=== PATIENT | male | born 1940 | race Caucasian/White ===

== ENCOUNTER → 2019-11-27 | Outpatient (CLI) | payer MEDICARE ==
[~2019-11-27] MED LIST: ASPI81CH PO; ATOR20 PO; CRANBERRY500 MG PO; FISH OIL 1,0001 EAC1 PO; Fish Oil 10001000 MG PO; Omeprazole20 M1 PO; Pyridium200 MG PO; Sulfamethoxazo1 EAC4 PO; VITAMIN B-125000 MC1 PO; VITAMIN B-125000 MCG SL; WARF5 PO; XARELTO15 MG PO
== END | disposition home or self-care (01) ==
LOC: LAB SHORT 17:07 → LAB EV 17:07
DX: R82.90 Unspecified abnormal findings in urine (principal)
CPT/HCPCS: 87077; 87086; 87147; 87186

== ENCOUNTER 2020-01-03 10:45 | Emergency (ER) | payer MEDICARE ==
[~2020-01-03] VITALS: Ht 193 cm; Wt 93.0 kg
[2020-01-03] MEDS ORDERED: Ultram50 MG PO (13:12)
[2020-01-03] MEDS ORDERED: Robaxin-750750 MG PO (13:12)
== END 2020-01-03 13:36 | disposition home or self-care (01) ==
LOC: ER 10:45
DX: S39.012A Strain of muscle, fascia and tendon of lower back, initial encounter (principal); M62.830 Muscle spasm of back; Z79.899 Other long term (current) drug therapy; X50.9XXA Other and unspecified overexertion or strenuous movements or postures, initial encounter
CPT/HCPCS: 99283; J7120

== ENCOUNTER → 2020-01-13 | Outpatient (CLI) | payer MEDICARE ==
[~2020-01-13] MED LIST changes: +Robaxin-750750 MG PO; +Ultram50 MG PO
== END | disposition home or self-care (01) ==
LOC: LAB EV 15:45 → LAB SHORT 15:45
DX: N39.0 Urinary tract infection, site not specified (principal)
CPT/HCPCS: 87077; 87086; 87186

== ENCOUNTER → 2020-08-24 | Outpatient (CLI) | payer MEDICARE | END | disposition home or self-care (01) | LOC: LAB EV 10:00 → LAB SHORT 10:00 | DX: S81.801D Unspecified open wound, right lower leg, subsequent encounter (principal) | CPT/HCPCS: 87070; 87205 ==

== ENCOUNTER 2020-09-02 00:17 | Day surgery (SDC) | payer MEDICARE | END 2020-09-02 23:13 | disposition home or self-care (01) | LOC: WOUND 00:17 | DX: L97.811 Non-pressure chronic ulcer of other part of right lower leg limited to breakdown of skin (principal); I73.9 Peripheral vascular disease, unspecified; I87.2 Venous insufficiency (chronic) (peripheral); Z87.891 Personal history of nicotine dependence; Z79.899 Other long term (current) drug therapy | CPT/HCPCS: G0463 ==

== ENCOUNTER 2020-09-09 08:37 | Day surgery (SDC) | payer MEDICARE | END 2020-09-09 23:33 | disposition home or self-care (01) | LOC: WOUND 08:37 | DX: L97.811 Non-pressure chronic ulcer of other part of right lower leg limited to breakdown of skin (principal); I73.9 Peripheral vascular disease, unspecified; I87.2 Venous insufficiency (chronic) (peripheral); Z79.899 Other long term (current) drug therapy | CPT/HCPCS: G0463 ==

== ENCOUNTER 2020-09-16 00:18 | Day surgery (SDC) | payer MEDICARE | END 2020-09-16 23:08 | disposition home or self-care (01) | LOC: WOUND 00:18 | DX: L97.811 Non-pressure chronic ulcer of other part of right lower leg limited to breakdown of skin (principal); I87.2 Venous insufficiency (chronic) (peripheral); D64.9 Anemia, unspecified; Z86.718 Personal history of other venous thrombosis and embolism; Z85.038 Personal history of other malignant neoplasm of large intestine; Z85.51 Personal history of malignant neoplasm of bladder; Z92.21 Personal history of antineoplastic chemotherapy; Z92.3 Personal history of irradiation; Z79.01 Long term (current) use of anticoagulants; Z79.899 Other long term (current) drug therapy | CPT/HCPCS: G0463 ==

== ENCOUNTER 2020-09-23 00:18 | Day surgery (SDC) | payer MEDICARE | END 2020-09-23 22:50 | disposition home or self-care (01) | LOC: WOUND 00:18 | DX: L97.811 Non-pressure chronic ulcer of other part of right lower leg limited to breakdown of skin (principal); I73.9 Peripheral vascular disease, unspecified; I87.2 Venous insufficiency (chronic) (peripheral); Z79.899 Other long term (current) drug therapy | CPT/HCPCS: G0463 ==

== ENCOUNTER 2020-10-08 01:43 | Day surgery (SDC) | payer MEDICARE | END 2020-10-08 22:45 | disposition home or self-care (01) | LOC: WOUND 01:43 | DX: L97.819 Non-pressure chronic ulcer of other part of right lower leg with unspecified severity (principal); D64.9 Anemia, unspecified; Z79.01 Long term (current) use of anticoagulants; Z79.899 Other long term (current) drug therapy; Z86.718 Personal history of other venous thrombosis and embolism; Z92.21 Personal history of antineoplastic chemotherapy; Z92.3 Personal history of irradiation | CPT/HCPCS: G0463 ==

== ENCOUNTER 2022-07-20 17:00 | Inpatient (IN) | payer OTHER ==
[~2022-07-20] VITALS: Ht 193 cm; Wt 101.1 kg
[2022-07-20 18:18] LABS: BASOPHILS ABSOLUTE AUTO 0.06 K/mm3 (0.00-0.23); BASOPHILS PERCENT AUTO 0 % (0-2); EOSINOPHILS ABSOLUTE AUTO 0.15 K/mm3 (0.00-0.68); EOSINOPHILS PERCENT AUTO 1 % (0-6); Hemoglobin 11.9 g/dL (13.5-17.5); IMMATURE GRAN ABSOLUTE AUTO 0.06 K/mm3 (0.00-0.10); IMMATURE GRAN PERCENT AUTO 0 % (0-1); LYMPHOCYTES ABSOLUTE AUTO 1.06 K/mm3 (0.84-5.20); LYMPHOCYTES PERCENT AUTO 7 % (21-46); MONOCYTES ABSOLUTE AUTO 1.36 K/mm3 (0.16-1.47); MONOCYTES PERCENT AUTO 9 % (4-13); Mean Corpuscular HGB 25.6 pg (26.0-34.0); Mean Corpuscular HGB Conc 31.3 g/dL (31.5-36.5); Mean Corpuscular Volume 82 fL (80-100); NEUTROPHILS PERCENT AUTO 83 % (41-73); Platelet Count 180 K/mm3 (150-400); RDW Coefficient Variation 17.9 % (11.7-14.2); RDW Standard Deviation 53.9 fL (35.1-46.3); Red Blood Cell Count 4.64 M/mm3 (4.30-5.90); White Blood Cell Count 15.69 K/mm3 (4.00-11.30)
[2022-07-20 19:05] LABS: Albumin, Blood 3.4 g/dL (3.4-5.0); Albumin/Globulin Ratio 0.9 (0.8-1.8); Bilirubin, Total 0.5 mg/dL (0.1-1.0); Bun/Creatinine Ratio 14.2 (12.0-20.0); Calcium, Blood 9.7 mg/dL (8.5-10.1); Creatinine, Blood 0.92 mg/dL (0.60-1.20); Globulin, Blood 3.7 g/dL (2.2-4.0); Potassium, Blood 4.1 mmol/L (3.5-5.5); Total Protein, Blood 7.1 g/dL (6.4-8.2)
[2022-07-20 19:35] LABS: Influenza A, PCR NEGATIVE (NEGATIVE); Influenza B, PCR NEGATIVE (NEGATIVE); Resp Syncytial Virus, PCR NEGATIVE (NEGATIVE); SARS-Cov-2 (COVID-19) PCR, MMC NEGATIVE (NEGATIVE)
[2022-07-20 21:25] LABS: Source, Urine Foley catheter
[2022-07-20 21:28] LABS: Appearance, Urine Cloudy (Clear); Bilirubin, Urine Neg (Neg); Blood, Urine 5+ (Neg); Color, Urine Brown (P-Yellow); Glucose Qualitative, Urine Neg (Neg); Ketones, Urine Neg (Neg); Leukocyte Esterase, Urine 2+ (Neg); Nitrite, Urine Pos (Neg); Protein, Urine 1+ (Neg); Urobilinogen, Urine NORM (Normal)
[2022-07-20 21:34] LABS: Amorphous Mod (0-Heavy); Bacteria Mod /hpf; Squamous Epithelial Cells Rare /hpf (Few); White Blood Cells, Urine 25-50 /hpf (0-5)
[2022-07-21 00:29] LABS: International Normalized Ratio 3.43; Prothrombin Time Results 33.2 Sec (9.7-11.5)
--- NOTE | 2022-07-21 03:31 | NUR ---
LATE ENTRY FOR 07/21/22 @0120: PATIENT IS RECIEVED FROM ER VIA STRETCER. REPORTS GENERALIZED PAIN AND IS ASSISTED WITH REPOSITIONING. VSS, ALTAMIRANO IS PATENT FOR 1000 MLS OF URINE. LR BOLUS IS INFUSING UPON ADMISSION. PATIENT IS ORIENTED TO ROOM AND CALL VALERO. TELI IS PLACED.
[2022-07-21 05:17] LABS: Source, Urine Foley catheter
[2022-07-21 05:31] LABS: Appearance, Urine Turbid (Clear); Bilirubin, Urine Neg (Neg); Blood, Urine 5+ (Neg); Color, Urine Yellow (P-Yellow); Glucose Qualitative, Urine Neg (Neg); Ketones, Urine Neg (Neg); Leukocyte Esterase, Urine 3+ (Neg); Nitrite, Urine Neg (Neg); Protein, Urine 2+ (Neg); Specific Gravity, Urine 1.015 (1.003-1.022); Urobilinogen, Urine NORM (Normal)
[2022-07-21 05:38] LABS: BASOPHILS ABSOLUTE AUTO 0.03 K/mm3 (0.00-0.23); BASOPHILS PERCENT AUTO 0 % (0-2); EOSINOPHILS ABSOLUTE AUTO 0.06 K/mm3 (0.00-0.68); EOSINOPHILS PERCENT AUTO 1 % (0-6); Hemoglobin 10.1 g/dL (13.5-17.5); IMMATURE GRAN ABSOLUTE AUTO 0.03 K/mm3 (0.00-0.10); IMMATURE GRAN PERCENT AUTO 0 % (0-1); LYMPHOCYTES ABSOLUTE AUTO 0.79 K/mm3 (0.84-5.20); LYMPHOCYTES PERCENT AUTO 7 % (21-46); MONOCYTES ABSOLUTE AUTO 0.91 K/mm3 (0.16-1.47); MONOCYTES PERCENT AUTO 8 % (4-13); Mean Corpuscular HGB 25.6 pg (26.0-34.0); Mean Corpuscular HGB Conc 31.6 g/dL (31.5-36.5); Mean Corpuscular Volume 81 fL (80-100); Mean Platelet Volume 9.6 fL (9.1-12.4); NEUTROPHILS ABSOLUTE AUTO 9.09 K/mm3 (1.96-9.15); NEUTROPHILS PERCENT AUTO 83 % (41-73); Platelet Count 168 K/mm3 (150-400); RDW Standard Deviation 53.9 fL (35.1-46.3); Red Blood Cell Count 3.94 M/mm3 (4.30-5.90); White Blood Cell Count 10.91 K/mm3 (4.00-11.30)
[2022-07-21 05:54] LABS: Amorphous Heavy (0-Heavy); Bacteria Mod /hpf; Squamous Epithelial Cells Few /hpf (Few); White Blood Cells, Urine TNTC /hpf (0-5)
[2022-07-21 05:59] LABS: Albumin, Blood 2.6 g/dL (3.4-5.0); Albumin/Globulin Ratio 0.8 (0.8-1.8); Bilirubin, Total 0.6 mg/dL (0.1-1.0); Bun/Creatinine Ratio 9.4 (12.0-20.0); Calcium, Blood 8.3 mg/dL (8.5-10.1); Creatinine, Blood 0.96 mg/dL (0.60-1.20); Globulin, Blood 3.2 g/dL (2.2-4.0); Potassium, Blood 3.6 mmol/L (3.5-5.5); Total Protein, Blood 5.8 g/dL (6.4-8.2)
[2022-07-21 06:00] LABS: International Normalized Ratio 2.98
[2022-07-21 07:05] LABS: Prothrombin Time Results 29.1 Sec (9.7-11.5)
--- NOTE | 2022-07-21 07:28 | NUR ---
SHIFT SUMMARY: PATIENT WAS UNABLE TO REPOSITION TO HIS BACK FOR NEW ALTAMIRANO PLACEMENT. ALTAMIRANO WAS PLACED IN SIDELIEING POSITION, PATIENT TOLERATED PROCEEDURE FAIR. LEG SPASMS ARE OBSERVED S/P PLACEMENT. TO EARLY TO GIVEN TYLENOL. DR HERNADEZ IS NOTIFIED AND ORDERS FOR FENTANYL 25-50 MCG Q4H PRN WAS OBTAINED AND GIVEN WITH GOOD EFFECT.
--- NOTE | 2022-07-21 18:21 | NUR ---
SHIFT SUMMARY: PT IS HAVING POOR PAIN CONTROL ON CURRENT REGIMEN. SPOKE TO DR. VALLE BY PHONE, REQUESTED TRAMADOL (HOME MEDICATION) AND MUSCLE RELAXER; NO ORDERS YET. TWO PERSON MAX ASSIST WITH GAIT BELT AND FWW TO CHAIR, BLE VERY WEAK. NO EVENTS ON TELE- SINUS RHYTHYM, PVC'S IN 70'S. ALTAMIRANO DRAINING YELLOW URINE. APPETITE IS POOR; DID NOT EAT BREAKFAST OR LUNCH. LUNG SOUNDS DIM, FELIX. DENIES NAUSEA. DAUGHTER (PRIMARY CG) VISITED EARLIER TODAY.
[2022-07-21 21:48] LABS: Hematocrit 34.2 % (37.0-53.0); Hemoglobin 10.6 g/dL (13.5-17.5)
--- NOTE | 2022-07-21 22:05 | NUR ---
GI: PATIENT REPORTED NEEDING SOME TUMS THEN VOMITED 150 MLS OF A BROWN FOUL SMELLING EMESIS. IV ZOFRAN WAS GIVEN AND DR FORD WAS NOTIFIED, ORDERS FOR PROTONIX 80 MG IV PUSH, PROTONIX GTT AND STOP COUMAIDIN WERE OBTAINED. GASTRIC FLUID WAS SENT TO LAB AND IS NEGATIVE. PATIENT HAD A SECOND EPISODE OF EMESIS 25MLS. PATIENT IS NOW RESTING IN BED WITH HOB UP.
--- NOTE | 2022-07-21 23:29 | NUR ---
GI: DR GALEANA IS NOTIFIED OF GASTRIC SAMPLE IS NEGATIVE FOR BLOOD. PROTONIX GTT IS DC'D
[2022-07-22 04:42] LABS: BASOPHILS ABSOLUTE AUTO 0.04 K/mm3 (0.00-0.23); BASOPHILS PERCENT AUTO 1 % (0-2); EOSINOPHILS ABSOLUTE AUTO 0.25 K/mm3 (0.00-0.68); EOSINOPHILS PERCENT AUTO 3 % (0-6); Hematocrit 32.7 % (37.0-53.0); Hemoglobin 10.1 g/dL (13.5-17.5); IMMATURE GRAN ABSOLUTE AUTO 0.03 K/mm3 (0.00-0.10); IMMATURE GRAN PERCENT AUTO 0 % (0-1); LYMPHOCYTES ABSOLUTE AUTO 1.29 K/mm3 (0.84-5.20); LYMPHOCYTES PERCENT AUTO 16 % (21-46); MONOCYTES ABSOLUTE AUTO 0.95 K/mm3 (0.16-1.47); MONOCYTES PERCENT AUTO 12 % (4-13); Mean Corpuscular HGB 25.5 pg (26.0-34.0); Mean Corpuscular HGB Conc 30.9 g/dL (31.5-36.5); Mean Corpuscular Volume 83 fL (80-100); Mean Platelet Volume 9.3 fL (9.1-12.4); NEUTROPHILS PERCENT AUTO 69 % (41-73); Platelet Count 171 K/mm3 (150-400); RDW Coefficient Variation 18.3 % (11.7-14.2); RDW Standard Deviation 55.5 fL (35.1-46.3); Red Blood Cell Count 3.96 M/mm3 (4.30-5.90); White Blood Cell Count 8.26 K/mm3 (4.00-11.30)
[2022-07-22 04:58] LABS: International Normalized Ratio 2.12; Prothrombin Time Results 21.2 Sec (9.7-11.5)
[2022-07-22 05:00] LABS: Albumin, Blood 2.5 g/dL (3.4-5.0); Albumin/Globulin Ratio 0.7 (0.8-1.8); Bilirubin, Total 0.4 mg/dL (0.1-1.0); Bun/Creatinine Ratio 14.2 (12.0-20.0); Calcium, Blood 7.7 mg/dL (8.5-10.1); Creatinine, Blood 0.99 mg/dL (0.60-1.20); Globulin, Blood 3.5 g/dL (2.2-4.0); Magnesium, Blood 1.9 mg/dL (1.6-2.4); Phosphorus, Blood 2.3 mg/dL (2.5-4.9); Potassium, Blood 3.4 mmol/L (3.5-5.5)
--- NOTE | 2022-07-22 06:00 | NUR ---
SHIFT SUMMARY: PATIENT HAD NO FURTHER NAUSEA OR VOMITING. PRN FLEXRIL WAS GIVEN FOR BACK PAIN AND LEG SPASMS WITH GOOD EFFECT. TELI HAS BEEN SR WITH BBB, NO EVENTS THIS SHIFT.
--- NOTE | 2022-07-22 16:23 | NUR ---
SHIFT SUMMARY- PT ALERT AND ORIENTED, 1PA TO THE BED FROM THE CHAIR AND VICE VERSA. PLAN IS FOR SNF AT DISCHARGE WITH THE GOAL OF PT BEING ABLE TO RETURN HOME, FAMILY IS AWARE OF THIS PLAN. PT STATES HE NEEDS ADDITIONAL CAREGIVERS AT HOME CURRENTLY AND CONVEYED THAT TO THE DOCTOR ON MORNING ROUNDS. FAMILY IS INVOLVED WITH HIS CARE. PLAN, PER DR VALLE IS TO TRY TO FIND SNF PLACEMENT ON SUNDAY. PT WAS SEEN BY PHYSICAL THERAPY TODAY AND IS DETERMINED TO BE A 1PA WITH TRANSFERS. PT CURRENTLY UP IN THE CHAIR ASLEEP, C'O LEF CRAMPS. OFFERED A HEATING PAD AND THE PT DECLINED AT THIS TIME HE WANTED TO SIT IN THE CHAIR FOR A BIT TO SEE IF THAT HELP[ED THE CRAMPING. HEATING PAD IN THE BED WAITING FOR THE PT TO GET BACK IN BED TO TRY IT. NO CURRENT S&S OF DISTRESS AT THIS TIME WILL CTM AND PASS ON TO NIGHT RN IN BEDSIDE REPORT.
[2022-07-23 08:42] LABS: BASOPHILS ABSOLUTE AUTO 0.03 K/mm3 (0.00-0.23); BASOPHILS PERCENT AUTO 0 % (0-2); EOSINOPHILS ABSOLUTE AUTO 0.52 K/mm3 (0.00-0.68); EOSINOPHILS PERCENT AUTO 6 % (0-6); Hematocrit 34.9 % (37.0-53.0); Hemoglobin 10.6 g/dL (13.5-17.5); IMMATURE GRAN ABSOLUTE AUTO 0.05 K/mm3 (0.00-0.10); IMMATURE GRAN PERCENT AUTO 1 % (0-1); LYMPHOCYTES ABSOLUTE AUTO 1.49 K/mm3 (0.84-5.20); LYMPHOCYTES PERCENT AUTO 18 % (21-46); MONOCYTES ABSOLUTE AUTO 0.75 K/mm3 (0.16-1.47); MONOCYTES PERCENT AUTO 9 % (4-13); Mean Corpuscular HGB 25.1 pg (26.0-34.0); Mean Corpuscular HGB Conc 30.4 g/dL (31.5-36.5); Mean Corpuscular Volume 83 fL (80-100); Mean Platelet Volume 9.8 fL (9.1-12.4); NEUTROPHILS ABSOLUTE AUTO 5.33 K/mm3 (1.96-9.15); NEUTROPHILS PERCENT AUTO 65 % (41-73); Platelet Count 194 K/mm3 (150-400); RDW Coefficient Variation 18.3 % (11.7-14.2); RDW Standard Deviation 55.6 fL (35.1-46.3); Red Blood Cell Count 4.22 M/mm3 (4.30-5.90); White Blood Cell Count 8.17 K/mm3 (4.00-11.30)
[2022-07-23 09:00] LABS: Bun/Creatinine Ratio 13.9 (12.0-20.0); Calcium, Blood 7.9 mg/dL (8.5-10.1); Creatinine, Blood 0.79 mg/dL (0.60-1.20); Potassium, Blood 3.5 mmol/L (3.5-5.5)
[2022-07-23 09:03] LABS: International Normalized Ratio 1.92; Prothrombin Time Results 19.3 Sec (9.7-11.5)
--- NOTE | 2022-07-23 15:53 | NUR ---
SHIFT SUMMARY- PT HAS HAD NO ACUTE CHANGES T/O THE DAY TODAY. HE DID HAVE A FULL BED BATH, WAS ASSISTED UP TO THE CHAIR 2PA AFTER THE BED BATH. PT SAT IN THE CHAIR OVER LUNCH TIME FOR A TOTAL OF ABOUT 2 HOURS. PT WAS ASSISTED BACK TO BED THEN WAS A 2PA TO THE BSC A LITTLE LATER WHERE HE PASSED A MED SOFT MUCUSY STOOL. 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 MEDICATED FOR PAIN ONCE THIS SHIFT. PT STATED THE PAIN WAS IN HIS NECK TODAY. SPOKE TO DR VALLE ABOUT IMAGING RT THE PT BLADDER NEEDING TO BE IRRIGATED FREQUENTLY LAST NIGHT, HE MAY ORDER A RENAL US WITH BLADDER. HE IS AWARE THE ALTAMIRANO HAS BEEN BECOMING CLOGGED. WILL CTM AND PASS ON TO NIGHT RN IN BEDSIDE REPORT.
[2022-07-24 05:23] LABS: BASOPHILS ABSOLUTE AUTO 0.05 K/mm3 (0.00-0.23); BASOPHILS PERCENT AUTO 1 % (0-2); EOSINOPHILS ABSOLUTE AUTO 0.32 K/mm3 (0.00-0.68); EOSINOPHILS PERCENT AUTO 5 % (0-6); Hematocrit 32.3 % (37.0-53.0); Hemoglobin 10.3 g/dL (13.5-17.5); IMMATURE GRAN ABSOLUTE AUTO 0.01 K/mm3 (0.00-0.10); IMMATURE GRAN PERCENT AUTO 0 % (0-1); LYMPHOCYTES ABSOLUTE AUTO 1.14 K/mm3 (0.84-5.20); LYMPHOCYTES PERCENT AUTO 18 % (21-46); MONOCYTES ABSOLUTE AUTO 0.74 K/mm3 (0.16-1.47); MONOCYTES PERCENT AUTO 11 % (4-13); Mean Corpuscular HGB 25.9 pg (26.0-34.0); Mean Corpuscular HGB Conc 31.9 g/dL (31.5-36.5); Mean Corpuscular Volume 81 fL (80-100); Mean Platelet Volume 9.4 fL (9.1-12.4); NEUTROPHILS ABSOLUTE AUTO 4.21 K/mm3 (1.96-9.15); NEUTROPHILS PERCENT AUTO 65 % (41-73); Platelet Count 186 K/mm3 (150-400); RDW Coefficient Variation 18.4 % (11.7-14.2); RDW Standard Deviation 54.5 fL (35.1-46.3); Red Blood Cell Count 3.98 M/mm3 (4.30-5.90); White Blood Cell Count 6.47 K/mm3 (4.00-11.30)
[2022-07-24 05:27] LABS: Bun/Creatinine Ratio 15.4 (12.0-20.0); Calcium, Blood 7.5 mg/dL (8.5-10.1); Creatinine, Blood 0.78 mg/dL (0.60-1.20); International Normalized Ratio 2.09; Potassium, Blood 3.5 mmol/L (3.5-5.5); Prothrombin Time Results 20.9 Sec (9.7-11.5)
--- NOTE | 2022-07-24 08:28 | NUR ---
Rn summary: Patient is alert and oriented. Patient is having significant neck pain. States it is very stiff, has trouble turning it, "Like I slept on it wrong". Pt states it is also tender to the touch. Pt medicated per EMar. Patient was assisted up to bedside chair, with gait belt, walker and 2 assist. Patient moved very slowly with tiney steps. Pt did sit up for several hours and did not request any further pain meds. Pt has powerglide rt upper arm. Patient tele shows SR rate 85. Patient oconnell cath irrigated x1 with 10 cc NS for mucus plug, good urine output after, clear yellow urine with some mucus strands. Call light in reach. Will continue to monitor.
--- NOTE | 2022-07-24 17:25 | NUR ---
PATIENT IS ALERT AND ORIENTED AND COOPERATIVE WITH CARE. HE C/O NECK PAIN, MEDICATED PER EMAR. ALTAMIRANO IS IN PLACE AND PATENT AT THIS TIME. PATIENT WILL CALL AND STATE HE FEELS THAT HIS ALTAMIRANO IS "GETTING BACKED UP" AND WILL ASK FOR IT TO BE FLUSHED. ONE LARGE SOFT BM TODAY. PATIENT HAS TRANSFERRED FROM THE BED TO THE CHAIR MULTIPLE TIMES THROUGHOUT THE DAY. HYPERTENSION TREATED PER EMAR. PLAN IS FOR DISCHARGE TO SNF TOMORROW. WILL CONTINUE TO MONITOR
[2022-07-25 04:41] LABS: BASOPHILS ABSOLUTE AUTO 0.05 K/mm3 (0.00-0.23); BASOPHILS PERCENT AUTO 1 % (0-2); EOSINOPHILS ABSOLUTE AUTO 0.32 K/mm3 (0.00-0.68); EOSINOPHILS PERCENT AUTO 4 % (0-6); Hemoglobin 11.3 g/dL (13.5-17.5); IMMATURE GRAN ABSOLUTE AUTO 0.02 K/mm3 (0.00-0.10); IMMATURE GRAN PERCENT AUTO 0 % (0-1); LYMPHOCYTES ABSOLUTE AUTO 1.35 K/mm3 (0.84-5.20); LYMPHOCYTES PERCENT AUTO 17 % (21-46); MONOCYTES ABSOLUTE AUTO 0.96 K/mm3 (0.16-1.47); MONOCYTES PERCENT AUTO 12 % (4-13); Mean Corpuscular HGB 25.2 pg (26.0-34.0); Mean Corpuscular HGB Conc 31.4 g/dL (31.5-36.5); Mean Corpuscular Volume 80 fL (80-100); Mean Platelet Volume 9.6 fL (9.1-12.4); NEUTROPHILS ABSOLUTE AUTO 5.44 K/mm3 (1.96-9.15); NEUTROPHILS PERCENT AUTO 67 % (41-73); Platelet Count 227 K/mm3 (150-400); RDW Coefficient Variation 18.5 % (11.7-14.2); RDW Standard Deviation 53.7 fL (35.1-46.3); Red Blood Cell Count 4.48 M/mm3 (4.30-5.90); White Blood Cell Count 8.14 K/mm3 (4.00-11.30)
[2022-07-25 04:54] LABS: International Normalized Ratio 1.99
[2022-07-25 05:12] LABS: Bun/Creatinine Ratio 12.9 (12.0-20.0); Calcium, Blood 8.2 mg/dL (8.5-10.1); Creatinine, Blood 0.77 mg/dL (0.60-1.20); Potassium, Blood 3.9 mmol/L (3.5-5.5)
--- NOTE | 2022-07-25 07:36 | NUR ---
Rn summary: Patient remains alert and oriented. He is very pleasant and thankful for care. Pt states neck stiffness is getting a little better. His main problem is a pain that goes down his rt leg that causes him a lot of distress. His leg doesnt hurt when he is up in the chair. Pt was up and down between bed and chair during this shift. Pt did sleep about 3 hours in the chair. Medicated x1 with 50 mcg of fentanyl and 1x with tylenol and flexeril 5 mg, both effective for pain. Covid swab done this am. Jefry remains patent, no flush needed this shift.
[2022-07-25 08:42] LABS: Influenza A, PCR NEGATIVE (NEGATIVE); Influenza B, PCR NEGATIVE (NEGATIVE); Resp Syncytial Virus, PCR NEGATIVE (NEGATIVE); SARS-Cov-2 (COVID-19) PCR, MMC NEGATIVE (NEGATIVE)
[2022-07-25] MEDS ORDERED: CIPR500 PO (10:13)
[2022-07-25] MEDS ORDERED: WARF5 PO (10:13)
--- NOTE | 2022-07-25 16:07 | NUR ---
[facility]. GAVE REPORT TOP NURSE CALLING. ALL BELONGINGS WITH PT WHEN TRANSPORTED TO FACILITY. TRANSPOPRT VIA [facility][CLAUDE TRANSIT @ APROX. [id number]
--- NOTE | 2022-07-25 16:09 | NUR ---
SHIFT SUMMARY- PT APPETITE GOOD. PT AMBULATING W/ SBAX2 AND FFW. LAND ACQUISITION MANAGER REPORT OF AFIB, REPORTED TO DR. ALTAMIRANO FLUSHED, SEDIMATE SEEN. ALTAMIRANO FLOWING CLOUDY YELLOW URINE. POWER GLIDE VIABLE. PT UP IN CHAIR FOR PAIN MANAGEMENT OF R HIP AREA. PT REFUSED MEDICATION FOR PAIN SHIFT. PT RESTING COMFORTABLY WITH CALL LIGHT IN REACH.
== END 2022-07-25 15:31 | DRG 698 ==
LOC: ER 17:00 → MEDS 23:28
PROVIDERS: Family Medicine; Hospitalist; Internal Medicine; Student in an Organized Health Care Education/Training Program; ADMIT Internal Medicine
DX: T83.511A Infection and inflammatory reaction due to indwelling urethral catheter, initial encounter (principal); A41.4 Sepsis due to anaerobes; A41.53 Sepsis due to Serratia; A41.81 Sepsis due to Enterococcus; S22.41XA Multiple fractures of ribs, right side, initial encounter for closed fracture; N39.0 Urinary tract infection, site not specified; Z20.822 Contact with and (suspected) exposure to COVID-19; K21.9 Gastro-esophageal reflux disease without esophagitis; E78.5 Hyperlipidemia, unspecified; C67.9 Malignant neoplasm of bladder, unspecified; Z86.718 Personal history of other venous thrombosis and embolism; Z85.038 Personal history of other malignant neoplasm of large intestine; Z93.4 Other artificial openings of gastrointestinal tract status; Y84.6 Urinary catheterization as the cause of abnormal reaction of the patient, or of later complication, without mention of misadventure at the time of the procedure
CPT/HCPCS: 0241U; 36415; 71045; 71100; 72070; 73502; 76770; 80048; 80053; 81001; 82271; 83605; 83735; 83880; 84100; 84145; 85014; 85018; 85025; 85610; 85651; 86140; 87040; 87077; 87086; 87186; 93005; 93010; 96361; 96365; 96375; 97110; 97162; 97165; 97530; 99285-25; A9270; C9113; J0360; J0456; J0696; J2405; J3010; J3360; J7030; J7050; J7120

== ENCOUNTER 2023-02-12 10:40 | Observation (INO) | payer OTHER ==
[~2023-02-12] VITALS: Ht 188 cm; Wt 101.5 kg
[~2023-02-12 10:40] MED LIST changes: +CIPR500 PO; +ONDA4ODT MM
[2023-02-12 12:25] LABS: Albumin, Blood 3.6 g/dL (3.4-5.0); Albumin/Globulin Ratio 0.9 (0.8-1.8); Bilirubin, Total 0.7 mg/dL (0.1-1.0); Bun/Creatinine Ratio 16.2 (12.0-20.0); Calcium, Blood 8.8 mg/dL (8.5-10.1); Creatinine, Blood 0.87 mg/dL (0.60-1.20); Globulin, Blood 3.8 g/dL (2.2-4.0); Potassium, Blood 3.9 mmol/L (3.5-5.5); Total Protein, Blood 7.4 g/dL (6.4-8.2)
[2023-02-12 12:41] LABS: BASOPHILS ABSOLUTE AUTO 0.07 K/mm3 (0.00-0.23); BASOPHILS PERCENT AUTO 1 % (0-2); EOSINOPHILS ABSOLUTE AUTO 0.11 K/mm3 (0.00-0.68); EOSINOPHILS PERCENT AUTO 1 % (0-6); Hematocrit 35.1 % (37.0-53.0); Hemoglobin 10.7 g/dL (13.5-17.5); IMMATURE GRAN ABSOLUTE AUTO 0.06 K/mm3 (0.00-0.10); IMMATURE GRAN PERCENT AUTO 0 % (0-1); LYMPHOCYTES ABSOLUTE AUTO 0.85 K/mm3 (0.84-5.20); LYMPHOCYTES PERCENT AUTO 6 % (21-46); MONOCYTES ABSOLUTE AUTO 1.09 K/mm3 (0.16-1.47); MONOCYTES PERCENT AUTO 7 % (4-13); Mean Corpuscular HGB 23.6 pg (26.0-34.0); Mean Corpuscular HGB Conc 30.5 g/dL (31.5-36.5); Mean Corpuscular Volume 77 fL (80-100); Mean Platelet Volume 9.4 fL (9.1-12.4); NEUTROPHILS ABSOLUTE AUTO 13.17 K/mm3 (1.96-9.15); NEUTROPHILS PERCENT AUTO 86 % (41-73); Platelet Count 213 K/mm3 (150-400); RDW Coefficient Variation 17.7 % (11.7-14.2); RDW Standard Deviation 49.4 fL (35.1-46.3); Red Blood Cell Count 4.54 M/mm3 (4.30-5.90); White Blood Cell Count 15.35 K/mm3 (4.00-11.30)
[2023-02-12 12:55] LABS: Source, Urine Clean Catch
[2023-02-12 13:33] LABS: Appearance, Urine Cloudy (Clear); Bilirubin, Urine Neg (Neg); Blood, Urine 3+ (Neg); Glucose Qualitative, Urine Neg (Neg); Ketones, Urine Neg (Neg); Leukocyte Esterase, Urine 3+ (Neg); Nitrite, Urine Pos (Neg); Protein, Urine 2+ (Neg); Urobilinogen, Urine NORM (Normal)
[2023-02-12 13:55] LABS: Color, Urine Pale Yellow (P-Yellow)
[2023-02-12 14:06] LABS: Amorphous Light (0-Heavy); Bacteria Many /hpf; Mucus Heavy (0-Heavy); Squamous Epithelial Cells Rare /hpf (Few); Transitional Epithelial Cells Few /hpf (0-Rare); White Blood Cells, Urine 25-50 /hpf (0-5)
--- NOTE | 2023-02-12 17:17 | NUR ---
CALLED DR VALLE- AT THE TIME OF ASSESSSMENT THE PT STATED HE WISHES TO BE A DNR. SPOKE ABOUT WHAT THAT MEANS AND THE PPT STATED "IF MY HEART STOPS AND IM NOT BREATHING I'M , IF I'M LET ME BE." DR MALAGON IS AWARE AND WILL CHANGE THE PT CODE STATUS.
--- NOTE | 2023-02-12 18:49 | NUR ---
SHIFT SUMMARY- ADMIT MED REC NOT COMPLETED, PT UNABLE TO TELL STAFF WHAT MEDS HE TAKES AT HOME. ATTEMPTED TO CALL THE PHARMACY HOWEVER THEY WERE ALREADY CLOSED. WILL PASS ON TO NIGHT RN. PT IV ACCESS WAS LOST AFTER ARRIVAL ON MEDICAL FLOOR. LAC IV INFILTRATED AND RIGHT HAND IV WAS NO LONGER PATENT AND LEAKING. NO OTHER ACCESS WAS VISIBLE, CALLED KITCHEN CHEF FOR ASSIST, SHE WILL PASS ON TO NIGHT CHARGE IN REPORT AT THIS TIME. ADMISSION COMPLETED WITH THE EXCEPTION OF THE PT Hx. DAUGHTER WAS NOTIFIED OF THE PT ADMISSION AND SHE WILL BE IN TOMORROW TO SEE THE PT. PT STATES IF HE DOESN'T KNOW THEN HIS DAUGHTER JOCELYN NAVARRO. WILL PASS ON TO NIGHT RN IN BEDSIDE REPORT.
--- NOTE | 2023-02-13 04:43 | NUR ---
Shift Summary IV placed by night charge in R upper arm. Capps was leaking at the start of shift. Flushed Capps with saline, Capps now patent and no longer leaking. Rcving LR @75 and IV ABX. C/O some discomfort r/t being in bed, repositioned as needed. Pt AOx4, on Tele running SR in the 90's. Slept through some of the night. VSS, pleasant and cooperative.
[2023-02-13 05:56] LABS: BASOPHILS ABSOLUTE AUTO 0.04 K/mm3 (0.00-0.23); BASOPHILS PERCENT AUTO 1 % (0-2); EOSINOPHILS ABSOLUTE AUTO 0.13 K/mm3 (0.00-0.68); EOSINOPHILS PERCENT AUTO 2 % (0-6); Hematocrit 28.8 % (37.0-53.0); Hemoglobin 8.8 g/dL (13.5-17.5); IMMATURE GRAN ABSOLUTE AUTO 0.02 K/mm3 (0.00-0.10); IMMATURE GRAN PERCENT AUTO 0 % (0-1); LYMPHOCYTES PERCENT AUTO 15 % (21-46); MONOCYTES ABSOLUTE AUTO 0.75 K/mm3 (0.16-1.47); MONOCYTES PERCENT AUTO 9 % (4-13); Mean Corpuscular HGB 23.7 pg (26.0-34.0); Mean Corpuscular HGB Conc 30.6 g/dL (31.5-36.5); Mean Corpuscular Volume 78 fL (80-100); Mean Platelet Volume 9.4 fL (9.1-12.4); NEUTROPHILS ABSOLUTE AUTO 6.06 K/mm3 (1.96-9.15); NEUTROPHILS PERCENT AUTO 74 % (41-73); Platelet Count 164 K/mm3 (150-400); RDW Standard Deviation 50.6 fL (35.1-46.3); Red Blood Cell Count 3.71 M/mm3 (4.30-5.90)
[2023-02-13 06:15] LABS: International Normalized Ratio 1.36
[2023-02-13 06:58] LABS: Albumin, Blood 2.6 g/dL (3.4-5.0); Albumin/Globulin Ratio 0.8 (0.8-1.8); Bilirubin, Total 0.6 mg/dL (0.1-1.0); Bun/Creatinine Ratio 15.4 (12.0-20.0); Calcium, Blood 8.1 mg/dL (8.5-10.1); Creatinine, Blood 0.85 mg/dL (0.60-1.20); Globulin, Blood 3.4 g/dL (2.2-4.0); Potassium, Blood 3.3 mmol/L (3.5-5.5)
--- NOTE | 2023-02-13 10:12 | NUR ---
IV COMPATIBILITY CHECK- PT HAS LR AND IV CIPRO, CALLED PHARMMACY TO FERIFY COMPATIBILITY PRIOR TO HANGING. IV FLUSHED PRIOR TO CIPRO INFUSION, FLUSHED WITHOUT DIFFICULTY. DISCHARGE ORDERS RECCIEVED PENDING PT/OT EVAL. CALLED P.T. AND O.T. THEY ARE AWARE THE PT HAS A DISCHARGE PENDING THE EVALUATION AND WILL SEE THE PT SOONER IN THE SHIFT TO FACILITATE DISCHARGE.
--- NOTE | 2023-02-13 10:42 | NUR ---
CALLED DR VALLE- PT C/O HIS CATHETER STARTING TO HURT AND NEEDING TO BE FLUSHED. RECIEVED ORDER FOR BLADDER IRRIGATION NEEDED.
[2023-02-13] MEDS ORDERED: OMEP20ER PO (10:49)
[2023-02-13] MEDS ORDERED: ACET325 PO (10:49)
[2023-02-13] MEDS ORDERED: ELIQUIS5 M2 PO (10:49)
[2023-02-13] MEDS ORDERED: CIPR500 PO (10:49)
[2023-02-13] MEDS ORDERED: VISBIOME 112.51 EACH PO (10:50)
--- NOTE | 2023-02-13 13:55 | NUR ---
DISCHARGE NOTE- VERBAL AND WRITTEN DISCHARGE INSTRUCTIONS DISCUSSED AND WENT OVER WITH PATIENT AND HIS DAUGHTER JOCELYN. BOTH PATIENT AND DAUGHTER VERBALLY ACKNOWLEDGED UNDERSTANDING OF THE INSTRUCTIONS. PATIENT DRESSED WITH HIS PERSONAL CLOTHING WITH 1 ASSIST, TELE AND IV D/C'D BEFEORE DISCHARGE. PATIENT ESCORTED BY DRYING ROOM SUPERVISOR TO PATIENT'S DAUGHTER'S CAR WITHOUT ANY SIGNS OR SMPYOMS OF DISTRESS.
== END 2023-02-13 13:10 | disposition home health service (06) ==
LOC: ER 10:40 → ERHOLD 10:41 → MEDS 16:22
PROVIDERS: Physician Assistant; ADMIT Hospitalist
DX: N39.0 Urinary tract infection, site not specified (principal); Z66 Do not resuscitate; D50.9 Iron deficiency anemia, unspecified; M81.0 Age-related osteoporosis without current pathological fracture; K21.9 Gastro-esophageal reflux disease without esophagitis; E78.5 Hyperlipidemia, unspecified; Z86.718 Personal history of other venous thrombosis and embolism; Z88.8 Allergy status to other drugs, medicaments and biological substances; Z85.038 Personal history of other malignant neoplasm of large intestine; Z85.51 Personal history of malignant neoplasm of bladder; Z79.01 Long term (current) use of anticoagulants
CPT/HCPCS: 36415; 51702; 80053; 81001; 83605; 85025; 85610; 87077; 87086; 87147; 87186; 96361; 96361-59; 96365-59; 97162; 97166; 97530; 97535; 99285-25; A9270; G0378; J0696; J0744; J7030; J7120

== ENCOUNTER → 2023-03-12 | Outpatient (CLI) | payer OTHER ==
[~2023-03-12] MED LIST changes: +ACET325 PO; +ELIQUIS5 M2 PO; +OMEP20ER PO; +VISBIOME 112.51 EACH PO
[2023-03-12 12:55] LABS: Hematocrit 33.8 % (37.0-53.0); Hemoglobin 10.2 g/dL (13.5-17.5); Mean Corpuscular HGB 23.2 pg (26.0-34.0); Mean Corpuscular HGB Conc 30.2 g/dL (31.5-36.5); Mean Corpuscular Volume 77 fL (80-100); Mean Platelet Volume 9.6 fL (9.1-12.4); Platelet Count 201 K/mm3 (150-400); RDW Standard Deviation 47.6 fL (35.1-46.3); Red Blood Cell Count 4.39 M/mm3 (4.30-5.90); White Blood Cell Count 6.49 K/mm3 (4.00-11.30)
== END | disposition home or self-care (01) ==
LOC: LAB SHORT 10:54 → LAB 10:54
PROVIDERS: Family Medicine
DX: Z01.83 Encounter for blood typing (principal); D64.9 Anemia, unspecified
CPT/HCPCS: 85027

== ENCOUNTER → 2023-06-12 | Outpatient (CLI) | payer OTHER ==
[2023-06-12 16:29] LABS: Anion Gap 6 mmol/L (6-16); Blood Urea Nitrogen 13 mg/dL (8-24); CHOL/HDL RATIO 1.7; CO2, Blood 23 mmol/L (21-32); Calcium, Blood 8.3 mg/dL (8.5-10.1); Chloride, Blood 108 mmol/L (98-108); Cholesterol 101 mg/dL (50-200); Glucose, Blood 136 mg/dL (70-99); HDL Cholesterol 58 mg/dL (>39); LDL/HDL RATIO 0.5; Low Density Lipoprotein Chol 27 mg/dL (0-110); Potassium, Blood 3.6 mmol/L (3.5-5.5); Sodium, Blood 137 mmol/L (136-145); Triglycerides 80 mg/dL (30-160); Very Low Density Lipoprot Chol 16 mg/dL (6-32)
[2023-06-12 16:30] LABS: Bun/Creatinine Ratio 14.4 (12.0-20.0); Glomerular Filtration Rate 85 (60-)
== END | disposition home or self-care (01) ==
LOC: LAB 09:30 → LAB SHORT 09:30
PROVIDERS: Family Medicine
DX: E78.5 Hyperlipidemia, unspecified (principal); E87.6 Hypokalemia
CPT/HCPCS: 80048; 80061

== ENCOUNTER 2023-08-05 17:39 | Emergency (ER) | payer OTHER ==
[~2023-08-05] VITALS: Ht 188 cm; Wt 99.8 kg
[2023-08-05] MEDS ORDERED: ALEN10 (18:06)
[2023-08-05 22:01] LABS: Source, Urine Foley catheter
[2023-08-05 22:05] LABS: Bilirubin, Urine Neg (Neg); Blood, Urine 5+ (Neg); Glucose Qualitative, Urine Neg (Neg); Ketones, Urine Neg (Neg); Leukocyte Esterase, Urine 3+ (Neg); Nitrite, Urine Neg (Neg); Protein, Urine 2+ (Neg); Urobilinogen, Urine NORM (Normal)
[2023-08-05 22:09] LABS: Appearance, Urine Hazy (Clear); Color, Urine Yellow (P-Yellow)
[2023-08-05 22:11] LABS: Bacteria Mod /hpf; Red Blood Cells, Urine TNTC /hpf (0-2); Squamous Epithelial Cells Rare /hpf (Few); White Blood Cells, Urine 50-100 /hpf (0-5)
[2023-08-05] MEDS ORDERED: CEFP200 PO (22:58)
[2023-08-05 23:09] VITALS: BP 177/84
== END 2023-08-05 23:18 | disposition home or self-care (01) ==
LOC: ER 17:39
PROVIDERS: Student in an Organized Health Care Education/Training Program
DX: T83.098A Other mechanical complication of other urinary catheter, initial encounter (principal); Z88.8 Allergy status to other drugs, medicaments and biological substances; Z79.899 Other long term (current) drug therapy; E78.5 Hyperlipidemia, unspecified
CPT/HCPCS: 51702; 81001; 87077; 87086; 87186; 99283-25; A9270

== ENCOUNTER → 2023-08-10 | Outpatient (CLI) | payer OTHER ==
[~2023-08-10] MED LIST changes: +ALEN10; +CEFP200 PO
[2023-08-13 22:39] LABS: Bun/Creatinine Ratio 11.5 (12.0-20.0); Calcium, Blood 8.5 mg/dL (8.5-10.1); Creatinine, Blood 0.96 mg/dL (0.60-1.20); Potassium, Blood 4.1 mmol/L (3.5-5.5)
== END ==
LOC: LAB SHORT 16:33 → LAB 16:33
PROVIDERS: Family Medicine
DX: E87.6 Hypokalemia (principal)
CPT/HCPCS: 80048

== ENCOUNTER → 2023-09-25 | Outpatient (CLI) | payer OTHER ==
[2023-09-25 17:38] LABS: Hematocrit 26.7 % (37.0-53.0); Hemoglobin 7.4 g/dL (13.5-17.5); Mean Corpuscular HGB 18.6 pg (26.0-34.0); Mean Corpuscular HGB Conc 27.7 g/dL (31.5-36.5); Mean Corpuscular Volume 67 fL (80-100); Mean Platelet Volume 9.8 fL (9.1-12.4); Platelet Count 247 K/mm3 (150-400); RDW Coefficient Variation 19.6 % (11.7-14.2); RDW Standard Deviation 46.8 fL (35.1-46.3); Red Blood Cell Count 3.98 M/mm3 (4.30-5.90); White Blood Cell Count 5.31 K/mm3 (4.00-11.30)
== END ==
LOC: LAB 15:57 → LAB SHORT 15:57
PROVIDERS: Family Medicine
DX: D64.9 Anemia, unspecified (principal)
CPT/HCPCS: 85027

== ENCOUNTER → 2023-10-02 | Outpatient (CLI) | payer OTHER ==
[~2023-10-02] MED LIST changes: +FISH OIL 1,0001 EA10 PO; -FISH OIL 1,0001 EAC1 PO; +PANT40 PO; -VITAMIN B-125000 MC1 PO; +[UNRECOGNIZED DRUG - CODE] PO
[2023-10-02 16:32] LABS: Source, Urine Foley catheter
[2023-10-02 17:35] LABS: Appearance, Urine Turbid (Clear); Bilirubin, Urine Neg (Neg); Blood, Urine 5+ (Neg); Color, Urine Yellow (P-Yellow); Glucose Qualitative, Urine Neg (Neg); Ketones, Urine Neg (Neg); Leukocyte Esterase, Urine 3+ (Neg); Nitrite, Urine Pos (Neg); Protein, Urine 2+ (Neg); Specific Gravity, Urine 1.015 (1.003-1.022); Urobilinogen, Urine NORM (Normal)
[2023-10-02 17:53] LABS: Red Blood Cells, Urine 25-50 /hpf (0-2)
[2023-10-02 17:54] LABS: Bacteria Many /hpf; Mucus Light (0-Heavy); Renal Epithelial Rare /hpf (0-Rare); Squamous Epithelial Cells Few /hpf (Few); Transitional Epithelial Cells Rare /hpf (0-Rare)
== END ==
LOC: LAB 15:30 → LAB SHORT 15:30
PROVIDERS: Family Medicine
DX: N39.0 Urinary tract infection, site not specified (principal)
CPT/HCPCS: 81001; 87077; 87086; 87186

== ENCOUNTER → 2023-10-03 | Outpatient (CLI) | payer OTHER ==
[2023-10-03 15:19] LABS: Stool Occult Bld Immuno 1 Positive (NEGATIVE)
== END ==
LOC: LAB 10:59 → LAB SHORT 10:59
PROVIDERS: Family Medicine
DX: D64.9 Anemia, unspecified (principal)
CPT/HCPCS: 82274

== ENCOUNTER 2023-10-14 06:24 | Inpatient (IN) | payer OTHER ==
[~2023-10-14] VITALS: Ht 193 cm; Wt 99.8 kg
[~2023-10-14 06:24] MED LIST changes: -PANT40 PO
[2023-10-14 06:56] LABS: BASOPHILS ABSOLUTE AUTO 0.06 K/mm3 (0.00-0.23); BASOPHILS PERCENT AUTO 1 % (0-2); EOSINOPHILS PERCENT AUTO 3 % (0-6); Hematocrit 25.3 % (37.0-53.0); IMMATURE GRAN ABSOLUTE AUTO 0.01 K/mm3 (0.00-0.10); IMMATURE GRAN PERCENT AUTO 0 % (0-1); LYMPHOCYTES PERCENT AUTO 31 % (21-46); MONOCYTES ABSOLUTE AUTO 0.55 K/mm3 (0.16-1.47); MONOCYTES PERCENT AUTO 9 % (4-13); Mean Corpuscular HGB 18.2 pg (26.0-34.0); Mean Corpuscular HGB Conc 27.7 g/dL (31.5-36.5); Mean Corpuscular Volume 66 fL (80-100); Mean Platelet Volume 9.9 fL (9.1-12.4); NEUTROPHILS ABSOLUTE AUTO 3.57 K/mm3 (1.96-9.15); NEUTROPHILS PERCENT AUTO 56 % (41-73); Platelet Count 205 K/mm3 (150-400); RDW Coefficient Variation 19.9 % (11.7-14.2); RDW Standard Deviation 46.2 fL (35.1-46.3); Red Blood Cell Count 3.84 M/mm3 (4.30-5.90); White Blood Cell Count 6.39 K/mm3 (4.00-11.30)
[2023-10-14 07:23] LABS: Albumin, Blood 3.2 g/dL (3.4-5.0); Albumin/Globulin Ratio 0.8 (0.8-1.8); Bilirubin, Total 0.3 mg/dL (0.1-1.0); Bun/Creatinine Ratio 13.9 (12.0-20.0); Calcium, Blood 8.6 mg/dL (8.5-10.1); Creatinine, Blood 1.22 mg/dL (0.60-1.20); Globulin, Blood 3.8 g/dL (2.2-4.0); Magnesium, Blood 2.2 mg/dL (1.6-2.4); Potassium, Blood 4.2 mmol/L (3.5-5.5)
[2023-10-14 12:33] LABS: IMMATURE RETIC FRACTION 29.1 % (2.3-16.0); RETICULOCYTE ABSOLUTE 0.0522 M/mm3 (0.0200-0.1100); RETICULOCYTE COUNT PERCENT 1.48 % (0.50-2.50)
[2023-10-14 13:34] LABS: Percent Saturation 3.2 % (20.0-50.0)
--- NOTE | 2023-10-14 14:32 | NUR ---
ADMIT TO RM 358 PT REPORT RECEIVED FROM DANIEL. PT UNIT OF PRBC WAS IN ER. SHE REFUSED TO HANG IT. SENT UP WITH PT. UNABLE TO GET IVF D/T PT BEING ADLITTED TO ER. OVER RODE IVF TO PRIME TUBING. NO SIGNED BLOOD CONSENT EITHER. PT ARRIVED ALERT AND ORIENTED IN NO DISTRESS. VSS. STARTED PRBC JAMEE. PT DENIED PAIN OR SOB. CONTINUE POC.
[2023-10-14 14:37] VITALS: BP 147/62
[2023-10-14 15:28] VITALS: BP 140/60
[2023-10-14 19:23] VITALS: BP 111/56
[2023-10-15] VITALS (7 sets, daily range): BP systolic 91–135; BP diastolic 52–67
[2023-10-15 05:04] LABS: BASOPHILS ABSOLUTE AUTO 0.04 K/mm3 (0.00-0.23); BASOPHILS PERCENT AUTO 1 % (0-2); EOSINOPHILS PERCENT AUTO 4 % (0-6); Hematocrit 24.4 % (37.0-53.0); Hemoglobin 7.2 g/dL (13.5-17.5); IMMATURE GRAN ABSOLUTE AUTO 0.01 K/mm3 (0.00-0.10); IMMATURE GRAN PERCENT AUTO 0 % (0-1); LYMPHOCYTES ABSOLUTE AUTO 1.22 K/mm3 (0.84-5.20); LYMPHOCYTES PERCENT AUTO 27 % (21-46); MONOCYTES ABSOLUTE AUTO 0.45 K/mm3 (0.16-1.47); MONOCYTES PERCENT AUTO 10 % (4-13); Mean Corpuscular HGB 19.6 pg (26.0-34.0); Mean Corpuscular HGB Conc 29.5 g/dL (31.5-36.5); Mean Corpuscular Volume 67 fL (80-100); Mean Platelet Volume 9.8 fL (9.1-12.4); NEUTROPHILS ABSOLUTE AUTO 2.68 K/mm3 (1.96-9.15); NEUTROPHILS PERCENT AUTO 58 % (41-73); Platelet Count 163 K/mm3 (150-400); RDW Coefficient Variation 21.3 % (11.7-14.2); RDW Standard Deviation 49.9 fL (35.1-46.3); Red Blood Cell Count 3.67 M/mm3 (4.30-5.90)
[2023-10-15 05:31] LABS: Albumin, Blood 2.8 g/dL (3.4-5.0); Albumin/Globulin Ratio 0.9 (0.8-1.8); Bilirubin, Total 0.6 mg/dL (0.1-1.0); Bun/Creatinine Ratio 11.1 (12.0-20.0); Calcium, Blood 8.1 mg/dL (8.5-10.1); Creatinine, Blood 1.08 mg/dL (0.60-1.20); Globulin, Blood 3.2 g/dL (2.2-4.0); Potassium, Blood 4.2 mmol/L (3.5-5.5)
--- NOTE | 2023-10-15 05:49 | NUR ---
1900: ASSUMED CARE OF PT. REPORT RECEIVED FROM DAY SHIFT RN. PT IS FOUND LAYING IN BED ON HIS RIGHT SIDE. A/O X4. DENIES COMPLAINT AT THIS TIME. TELEMETRY IN PLACE, SINUS WITH PAUSES PER CAR PUSHER. PT DENIES CARDIAC SYMPTOMS. SALINE LOCK TO RIGHT FOREARM. SCDS AND SEIZURE PRECAUTIONS PLACED PER ORDERS. VSS. DURING SHIFT PT COMPLAINS OF INCREASED PAIN TO HIS BACK, REPORTED CHRONIC PAIN. REQUEST FOR TYLENOL TO THE HOSPITALIST PER PT REQUEST, ORDERS RECIEVED. PT RESTED COMFORTABLY IN BED THE REMAINDER OF THE NIGHT. BREATHING EVEN AND UNLABORED. NEEDS ADDRESSED AND SAFETY MEASURES TAKEN.
[2023-10-15 11:40] LABS: Stool Occult Blood Guaiac 1 Pos (Neg)
--- NOTE | 2023-10-15 18:09 | NUR ---
SHIFT SUMMARY PT A&OX4 AND PLEASANT. PT C/O CHRONIC BACK PAIN. MEDICATED PER EMEAR WITH GOOD EFFECT. STOOL SAMPLE COLLECTED TODAY FOR OCCULT BLOOD AND RESULTS WERE POSITIVE. Hgb INCREASED SLIGHTLY TO 7.2 FROM YESTERDAY. VSS. DAUGHTER AT BEDSIDE FOR SEVERAL HOURS. PT CALLS APPROPRIATELY. BED IN LOWEST POSITION AND CALL LIGHT IN REACH.
[2023-10-16] VITALS (9 sets, daily range): BP systolic 109–129; BP diastolic 49–81
[2023-10-16 05:05] LABS: BASOPHILS ABSOLUTE AUTO 0.05 K/mm3 (0.00-0.23); BASOPHILS PERCENT AUTO 1 % (0-2); EOSINOPHILS ABSOLUTE AUTO 0.22 K/mm3 (0.00-0.68); EOSINOPHILS PERCENT AUTO 5 % (0-6); Hematocrit 24.4 % (37.0-53.0); Hemoglobin 7.1 g/dL (13.5-17.5); IMMATURE GRAN PERCENT AUTO 0 % (0-1); LYMPHOCYTES ABSOLUTE AUTO 1.35 K/mm3 (0.84-5.20); LYMPHOCYTES PERCENT AUTO 28 % (21-46); MONOCYTES ABSOLUTE AUTO 0.52 K/mm3 (0.16-1.47); MONOCYTES PERCENT AUTO 11 % (4-13); Mean Corpuscular HGB 19.5 pg (26.0-34.0); Mean Corpuscular HGB Conc 29.1 g/dL (31.5-36.5); Mean Corpuscular Volume 67 fL (80-100); Mean Platelet Volume 9.7 fL (9.1-12.4); NEUTROPHILS ABSOLUTE AUTO 2.63 K/mm3 (1.96-9.15); NEUTROPHILS PERCENT AUTO 55 % (41-73); Platelet Count 166 K/mm3 (150-400); RDW Coefficient Variation 21.4 % (11.7-14.2); RDW Standard Deviation 50.3 fL (35.1-46.3); Red Blood Cell Count 3.64 M/mm3 (4.30-5.90); White Blood Cell Count 4.77 K/mm3 (4.00-11.30)
[2023-10-16 05:33] LABS: Albumin, Blood 2.8 g/dL (3.4-5.0); Anion Gap 5 mmol/L (6-16); Blood Urea Nitrogen 17 mg/dL (8-24); Bun/Creatinine Ratio 14.9 (12.0-20.0); CO2, Blood 24 mmol/L (21-32); Chloride, Blood 112 mmol/L (98-108); Creatinine, Blood 1.14 mg/dL (0.60-1.20); Glomerular Filtration Rate 64 (60-); Glucose, Blood 103 mg/dL (70-99); Phosphorus, Blood 3.4 mg/dL (2.5-4.9); Potassium, Blood 4.2 mmol/L (3.5-5.5); Sodium, Blood 141 mmol/L (136-145)
[2023-10-16] MEDS ORDERED: PANT40 PO (13:28)
--- NOTE | 2023-10-16 15:35 | NUR ---
NOTIFIED DR. CHANG OF PT STATUS DURING BLOOD TRANSFUSION NOTIFIED DR. CHANG OF PT EXPERIENCING HIVES ISOLATED TO THE HUMBLE. PT DENIES OTHER S/SX OR COMPLAINTS. DR. CHANG INSTRUCTED TO MONITOR PT FOR 1 HOUR AFTER COMPLETION OF BLOOD TRANSFUSION.
--- NOTE | 2023-10-16 17:50 | NUR ---
DISCHARGE NOTE PT DISCHARGED HOME AT APPROX 17:45. PT PROVIDED W/ WRITTEN AND VERBAL INSTRUCTIONS AND REPORTED UNDERSTANDING. PT A&OX4, VSS, AMB W/ 1 ASSIST, TOLERATING PO, VOIDING, AND DENIED PAIN. BELONGINGS WERE RETURNED AND PT ESCOURTED OUT VIA W/C BY ARIANNE VAUGHN.
== END 2023-10-16 17:53 | disposition home health service (06) | DRG 812 ==
LOC: ER 06:24 → MEDS 06:25 → ENPENDDIS 10-16 13:15 → MEDS 10-16 17:53
PROVIDERS: Emergency Medicine; Family Medicine; ADMIT Internal Medicine
PROC: 30233N1 Transfusion of Nonautologous Red Blood Cells into Peripheral Vein, Percutaneous Approach (ICD-10-PCS; principal; 2023-10-14)
DX: D50.9 Iron deficiency anemia, unspecified (principal); K92.2 Gastrointestinal hemorrhage, unspecified; E87.20 Acidosis, unspecified; R55 Syncope and collapse; K21.9 Gastro-esophageal reflux disease without esophagitis; E78.5 Hyperlipidemia, unspecified; I10 Essential (primary) hypertension; M81.0 Age-related osteoporosis without current pathological fracture; Z86.718 Personal history of other venous thrombosis and embolism; Z79.01 Long term (current) use of anticoagulants; Z85.51 Personal history of malignant neoplasm of bladder
CPT/HCPCS: 36415; 36430; 70450; 74177; 80053; 80069; 82270; 82607; 82728; 82746; 83540; 83550; 83605; 83690; 83735; 84484; 85025; 85045; 86850; 86900; 86901; 86923; 93005; 93010; 96360; 96374; 96376; 99285-25; A9270; C9113; G0378; J7030; J7040; P9016; Q9967

== ENCOUNTER → 2023-10-18 | Outpatient (CLI) | payer OTHER ==
[~2023-10-18] MED LIST changes: +PANT40 PO
[2023-10-18 15:57] LABS: Mean Corpuscular HGB 20.2 pg (26.0-34.0); Mean Corpuscular Volume 70 fL (80-100); Mean Platelet Volume 10.1 fL (9.1-12.4); Platelet Count 220 K/mm3 (150-400); RDW Coefficient Variation 23.2 % (11.7-14.2); RDW Standard Deviation 56.4 fL (35.1-46.3); Red Blood Cell Count 4.45 M/mm3 (4.30-5.90); White Blood Cell Count 5.39 K/mm3 (4.00-11.30)
== END ==
LOC: LAB 14:40 → LAB SHORT 14:40
PROVIDERS: Family Medicine
DX: D64.9 Anemia, unspecified (principal)
CPT/HCPCS: 85027

== ENCOUNTER → 2023-11-01 | Outpatient (CLI) | payer OTHER ==
[2023-11-01 18:25] LABS: Hematocrit 32.2 % (37.0-53.0); Hemoglobin 9.3 g/dL (13.5-17.5); Mean Corpuscular HGB 20.3 pg (26.0-34.0); Mean Corpuscular HGB Conc 28.9 g/dL (31.5-36.5); Mean Corpuscular Volume 70 fL (80-100); Mean Platelet Volume 9.7 fL (9.1-12.4); Platelet Count 245 K/mm3 (150-400); RDW Coefficient Variation 24.1 % (11.7-14.2); RDW Standard Deviation 59.2 fL (35.1-46.3); Red Blood Cell Count 4.59 M/mm3 (4.30-5.90); White Blood Cell Count 6.17 K/mm3 (4.00-11.30)
== END ==
LOC: LAB SHORT 15:48 → LAB 15:48
PROVIDERS: Family Medicine
DX: D64.9 Anemia, unspecified (principal); Z13.0 Encounter for screening for diseases of the blood and blood-forming organs and certain disorders involving the immune mechanism
CPT/HCPCS: 85027

== ENCOUNTER → 2023-12-03 | Outpatient (CLI) | payer OTHER ==
[2023-12-03 15:20] LABS: CHOL/HDL RATIO 1.9; Cholesterol 141 mg/dL (50-200); HDL Cholesterol 74 mg/dL (>39); Hematocrit 35.7 % (37.0-53.0); Hemoglobin 10.1 g/dL (13.5-17.5); LDL/HDL RATIO 0.7; Low Density Lipoprotein Chol 52 mg/dL (0-110); Mean Corpuscular HGB 20.1 pg (26.0-34.0); Mean Corpuscular HGB Conc 28.3 g/dL (31.5-36.5); Mean Corpuscular Volume 71 fL (80-100); Mean Platelet Volume 9.6 fL (9.1-12.4); Platelet Count 290 K/mm3 (150-400); RDW Coefficient Variation 23.6 % (11.7-14.2); RDW Standard Deviation 59.1 fL (35.1-46.3); Red Blood Cell Count 5.02 M/mm3 (4.30-5.90); Triglycerides 75 mg/dL (30-160); Very Low Density Lipoprot Chol 15 mg/dL (6-32); White Blood Cell Count 7.15 K/mm3 (4.00-11.30)
== END | disposition home or self-care (01) ==
LOC: LAB SHORT 13:19 → LAB 13:19
PROVIDERS: Family Medicine
DX: Z13.0 Encounter for screening for diseases of the blood and blood-forming organs and certain disorders involving the immune mechanism (principal); I25.10 Atherosclerotic heart disease of native coronary artery without angina pectoris; R79.9 Abnormal finding of blood chemistry, unspecified
CPT/HCPCS: 80061; 85027

== ENCOUNTER → 2024-02-26 | Outpatient (CLI) | payer OTHER ==
[2024-02-26 12:42] LABS: Hematocrit 31.6 % (37.0-53.0); Hemoglobin 9.2 g/dL (13.5-17.5); Mean Corpuscular HGB Conc 29.1 g/dL (31.5-36.5); Mean Corpuscular Volume 72 fL (80-100); Mean Platelet Volume 9.3 fL (9.1-12.4); Platelet Count 227 K/mm3 (150-400); RDW Coefficient Variation 19.3 % (11.7-14.2); RDW Standard Deviation 50.2 fL (35.1-46.3); Red Blood Cell Count 4.38 M/mm3 (4.30-5.90); White Blood Cell Count 6.64 K/mm3 (4.00-11.30)
[2024-02-27 11:09] LABS: FERRITIN 15 ng/mL (30-400)
[2024-02-27 22:10] LABS: IRON BIND.CAP.(TIBC) 386 ug/dL (250-450); IRON SATURATION 4 % (15-55); IRON, SERUM 14 ug/dL (38-169); UIBC 372 ug/dL (111-343)
== END | disposition home or self-care (01) ==
LOC: LAB 11:50 → LAB SHORT 11:50
PROVIDERS: Family Medicine
DX: D50.9 Iron deficiency anemia, unspecified (principal); N40.1 Benign prostatic hyperplasia with lower urinary tract symptoms
CPT/HCPCS: 82728; 83540; 83550; 85027

== ENCOUNTER 2024-03-12 13:52 | Emergency (ER) | payer OTHER ==
[~2024-03-12] VITALS: Ht 193 cm; Wt 81.7 kg
[2024-03-12 14:47] LABS: BASOPHILS ABSOLUTE AUTO 0.06 K/mm3 (0.00-0.23); BASOPHILS PERCENT AUTO 1 % (0-2); EOSINOPHILS ABSOLUTE AUTO 0.24 K/mm3 (0.00-0.68); EOSINOPHILS PERCENT AUTO 4 % (0-6); Hematocrit 32.6 % (37.0-53.0); Hemoglobin 9.4 g/dL (13.5-17.5); IMMATURE GRAN ABSOLUTE AUTO 0.01 K/mm3 (0.00-0.10); IMMATURE GRAN PERCENT AUTO 0 % (0-1); LYMPHOCYTES ABSOLUTE AUTO 1.89 K/mm3 (0.84-5.20); LYMPHOCYTES PERCENT AUTO 31 % (21-46); MONOCYTES ABSOLUTE AUTO 0.63 K/mm3 (0.16-1.47); MONOCYTES PERCENT AUTO 10 % (4-13); Mean Corpuscular HGB 20.9 pg (26.0-34.0); Mean Corpuscular HGB Conc 28.8 g/dL (31.5-36.5); Mean Corpuscular Volume 73 fL (80-100); Mean Platelet Volume 9.2 fL (9.1-12.4); NEUTROPHILS ABSOLUTE AUTO 3.32 K/mm3 (1.96-9.15); NEUTROPHILS PERCENT AUTO 54 % (41-73); Platelet Count 224 K/mm3 (150-400); RDW Coefficient Variation 20.7 % (11.7-14.2); RDW Standard Deviation 51.9 fL (35.1-46.3); Red Blood Cell Count 4.49 M/mm3 (4.30-5.90); White Blood Cell Count 6.15 K/mm3 (4.00-11.30)
[2024-03-12 14:49] LABS: Albumin, Blood 3.2 g/dL (3.4-5.0); Albumin/Globulin Ratio 0.9 (0.8-1.8); Bilirubin, Total 0.4 mg/dL (0.1-1.0); Bun/Creatinine Ratio 11.7 (12.0-20.0); Calcium, Blood 8.7 mg/dL (8.5-10.1); Creatinine, Blood 0.94 mg/dL (0.60-1.20); Globulin, Blood 3.4 g/dL (2.2-4.0); Potassium, Blood 3.7 mmol/L (3.5-5.5); Total Protein, Blood 6.6 g/dL (6.4-8.2)
[2024-03-12 16:00] VITALS: BP 159/80
[2024-03-15] MEDS ORDERED: IRON BISGLYCINA28 MG PO (13:02)
[2024-03-15] MEDS ORDERED: VIT D3-VIT K21 EACH PO (13:02)
[2024-03-17] MEDS ORDERED: METO5A PO (11:17)
== END 2024-03-12 16:54 | disposition home or self-care (01) ==
LOC: ER 13:52
PROVIDERS: Emergency Medicine
DX: R55 Syncope and collapse (principal); K59.00 Constipation, unspecified; D64.9 Anemia, unspecified; E78.5 Hyperlipidemia, unspecified; Z88.8 Allergy status to other drugs, medicaments and biological substances; Z79.899 Other long term (current) drug therapy
CPT/HCPCS: 74177; 80053; 83690; 85025; 93005; 93010; 99284-25; Q9967

== ENCOUNTER 2024-03-15 01:30 | Inpatient (IN) | payer OTHER ==
[~2024-03-15] VITALS: Ht 188 cm; Wt 90.7 kg
[2024-03-17 07:14] VITALS: BP 120/59
== END 2024-03-17 12:29 | disposition home or self-care (01) | DRG 390 ==
LOC: ER 01:30 → SURS 09:58
PROVIDERS: ADMIT Family Medicine
PROC: 0D9670Z Drainage of Stomach with Drainage Device, Via Natural or Artificial Opening (ICD-10-PCS; principal; 2024-03-15)
DX: K56.609 Unspecified intestinal obstruction, unspecified as to partial versus complete obstruction (principal); K21.9 Gastro-esophageal reflux disease without esophagitis; E78.5 Hyperlipidemia, unspecified; I10 Essential (primary) hypertension; K59.00 Constipation, unspecified; Z66 Do not resuscitate; D50.9 Iron deficiency anemia, unspecified; M81.0 Age-related osteoporosis without current pathological fracture; K43.9 Ventral hernia without obstruction or gangrene; D63.8 Anemia in other chronic diseases classified elsewhere; Z88.8 Allergy status to other drugs, medicaments and biological substances; Z98.890 Other specified postprocedural states; Z86.718 Personal history of other venous thrombosis and embolism; Z85.51 Personal history of malignant neoplasm of bladder; Z79.899 Other long term (current) drug therapy; Z85.038 Personal history of other malignant neoplasm of large intestine

== ENCOUNTER → 2024-04-14 | Outpatient (CLI) | payer OTHER ==
[~2024-04-14] MED LIST changes: +IRON BISGLYCINA28 MG PO; +METO5A PO; +VIT D3-VIT K21 EACH PO
[2024-04-14 14:20] LABS: BASOPHILS ABSOLUTE AUTO 0.06 K/mm3 (0.00-0.23); BASOPHILS PERCENT AUTO 1 % (0-2); EOSINOPHILS PERCENT AUTO 12 % (0-6); Hemoglobin 11.4 g/dL (13.5-17.5); IMMATURE GRAN PERCENT AUTO 0 % (0-1); LYMPHOCYTES ABSOLUTE AUTO 1.81 K/mm3 (0.84-5.20); LYMPHOCYTES PERCENT AUTO 30 % (21-46); MONOCYTES ABSOLUTE AUTO 0.61 K/mm3 (0.16-1.47); MONOCYTES PERCENT AUTO 10 % (4-13); Mean Corpuscular HGB 23.9 pg (26.0-34.0); Mean Corpuscular Volume 80 fL (80-100); Mean Platelet Volume 9.9 fL (9.1-12.4); NEUTROPHILS ABSOLUTE AUTO 2.88 K/mm3 (1.96-9.15); NEUTROPHILS PERCENT AUTO 47 % (41-73); Platelet Count 184 K/mm3 (150-400); RDW Coefficient Variation 26.5 % (11.7-14.2); RDW Standard Deviation 74.7 fL (35.1-46.3); Red Blood Cell Count 4.77 M/mm3 (4.30-5.90); White Blood Cell Count 6.06 K/mm3 (4.00-11.30)
== END ==
LOC: LAB 12:30 → LAB SHORT 12:30
PROVIDERS: Family Medicine
DX: D50.9 Iron deficiency anemia, unspecified (principal); N40.1 Benign prostatic hyperplasia with lower urinary tract symptoms
CPT/HCPCS: 85025

== ENCOUNTER → 2024-05-14 | Outpatient (CLI) | payer OTHER ==
[2024-05-14 15:19] LABS: Hematocrit 38.4 % (37.0-53.0); Mean Corpuscular HGB 25.8 pg (26.0-34.0); Mean Corpuscular HGB Conc 31.3 g/dL (31.5-36.5); Mean Corpuscular Volume 83 fL (80-100); Mean Platelet Volume 10.1 fL (9.1-12.4); Platelet Count 189 K/mm3 (150-400); RDW Coefficient Variation 23.7 % (11.7-14.2); Red Blood Cell Count 4.65 M/mm3 (4.30-5.90); White Blood Cell Count 5.82 K/mm3 (4.00-11.30)
== END ==
LOC: LAB 12:00 → LAB SHORT 12:00
PROVIDERS: Family Medicine
DX: D64.9 Anemia, unspecified (principal)
CPT/HCPCS: 85027

== ENCOUNTER 2024-06-22 09:19 | Emergency (ER) | payer OTHER ==
[~2024-06-22] VITALS: Ht 182.9 cm; Wt 90.7 kg
[2024-06-22] MEDS ORDERED: NS 1,000 ML IV SCH (11:05)
[2024-06-22 11:29] LABS: BASOPHILS ABSOLUTE AUTO 0.05 K/mm3 (0.00-0.23); BASOPHILS PERCENT AUTO 1 % (0-2); EOSINOPHILS ABSOLUTE AUTO 0.36 K/mm3 (0.00-0.68); EOSINOPHILS PERCENT AUTO 4 % (0-6); Hematocrit 37.6 % (37.0-53.0); Hemoglobin 12.1 g/dL (13.5-17.5); IMMATURE GRAN ABSOLUTE AUTO 0.01 K/mm3 (0.00-0.10); IMMATURE GRAN PERCENT AUTO 0 % (0-1); LYMPHOCYTES ABSOLUTE AUTO 1.91 K/mm3 (0.84-5.20); LYMPHOCYTES PERCENT AUTO 22 % (21-46); MONOCYTES ABSOLUTE AUTO 0.81 K/mm3 (0.16-1.47); MONOCYTES PERCENT AUTO 10 % (4-13); Mean Corpuscular HGB 27.1 pg (26.0-34.0); Mean Corpuscular HGB Conc 32.2 g/dL (31.5-36.5); Mean Corpuscular Volume 84 fL (80-100); Mean Platelet Volume 8.3 fL (9.1-12.4); NEUTROPHILS PERCENT AUTO 63 % (41-73); Platelet Count 269 K/mm3 (150-400); RDW Coefficient Variation 16.8 % (11.7-14.2); RDW Standard Deviation 50.6 fL (35.1-46.3); Red Blood Cell Count 4.46 M/mm3 (4.30-5.90); White Blood Cell Count 8.54 K/mm3 (4.00-11.30)
[2024-06-22 11:38] LABS: Albumin, Blood 2.9 g/dL (3.4-5.0); Albumin/Globulin Ratio 0.6 (0.8-1.8); Bilirubin, Total 0.3 mg/dL (0.1-1.0); Bun/Creatinine Ratio 13.9 (12.0-20.0); Calcium, Blood 8.7 mg/dL (8.5-10.1); Creatinine, Blood 0.72 mg/dL (0.60-1.20); Globulin, Blood 4.6 g/dL (2.2-4.0); Potassium, Blood 4.7 mmol/L (3.5-5.5); Total Protein, Blood 7.5 g/dL (6.4-8.2)
[2024-06-22] MEDS ORDERED: Ondansetron HCl 2 MG / ML 2ML Vial IV ONE ×2 (12:15→13:55)
[2024-06-22] MEDS ORDERED: FentaNYL Citrate 50 MCG/ML 2 ML Injection IV ONE (12:15)
[2024-06-22] MEDS ORDERED: HYDROmorphone HCl/Pf 1MG SYR IV ONE (13:55)
[2024-06-22] MEDS ORDERED: OxyCODONE HCL 5 MG TAB PO ONE (16:20)
[2024-06-22 19:13] VITALS: BP 136/67
== END 2024-06-22 19:05 | disposition home or self-care (01) ==
LOC: ER 09:19
PROVIDERS: Emergency Medicine
DX: M48.061 Spinal stenosis, lumbar region without neurogenic claudication (principal); Z87.891 Personal history of nicotine dependence; Z88.8 Allergy status to other drugs, medicaments and biological substances; Z79.899 Other long term (current) drug therapy
CPT/HCPCS: 72148; 72158; 80053; 85025; 96361; 96374-59; 96375-59; 96376-59; 99284-25; A9270; J1170; J2405; J3010; J7030

== ENCOUNTER → 2025-02-16 | Outpatient (CLI) | payer OTHER ==
[~2025-02-16] MED LIST changes: +CEPH500 PO
[2025-02-16 14:35] LABS: Hematocrit 36.4 % (37.0-53.0); Hemoglobin 11.6 g/dL (13.5-17.5); Mean Corpuscular HGB 26.5 pg (26.0-34.0); Mean Corpuscular HGB Conc 31.9 g/dL (31.5-36.5); Mean Corpuscular Volume 83 fL (80-100); Mean Platelet Volume 9.4 fL (9.1-12.4); Platelet Count 276 K/mm3 (150-400); RDW Coefficient Variation 17.5 % (11.7-14.2); RDW Standard Deviation 52.9 fL (35.1-46.3); Red Blood Cell Count 4.38 M/mm3 (4.30-5.90); White Blood Cell Count 8.44 K/mm3 (4.00-11.30)
== END ==
LOC: LAB SHORT 10:20 → LAB 10:20
PROVIDERS: Family Medicine
DX: D64.9 Anemia, unspecified (principal)
CPT/HCPCS: 85027

== ENCOUNTER → 2025-08-11 | Outpatient (CLI) | payer OTHER ==
[2025-08-11 14:28] LABS: Source, Urine Clean Catch
[2025-08-11 15:45] LABS: Color, Urine Yellow (P-Yellow); Glucose Qualitative, Urine Neg (Neg); Ketones, Urine Neg (Neg); Leukocyte Esterase, Urine 2+ (Neg); Protein, Urine 2+ (Neg); Specific Gravity, Urine 1.010 (1.003-1.022); Urobilinogen, Urine 1+ (Normal)
[2025-08-11 15:51] LABS: Bilirubin, Urine 1+ (Neg)
== END ==
LOC: LAB 14:00 → LAB SHORT 14:00
PROVIDERS: Family Medicine
DX: Z46.6 Encounter for fitting and adjustment of urinary device (principal); R33.9 Retention of urine, unspecified; N40.1 Benign prostatic hyperplasia with lower urinary tract symptoms; Z87.440 Personal history of urinary (tract) infections
CPT/HCPCS: 81001

== ENCOUNTER → 2025-08-17 | Outpatient (CLI) | payer OTHER ==
[2025-08-17 15:05] LABS: BASOPHILS ABSOLUTE AUTO 0.05 K/mm3 (0.00-0.23); BASOPHILS PERCENT AUTO 1 % (0-2); EOSINOPHILS ABSOLUTE AUTO 0.43 K/mm3 (0.00-0.68); EOSINOPHILS PERCENT AUTO 6 % (0-6); Hematocrit 38.1 % (37.0-53.0); Hemoglobin 12.5 g/dL (13.5-17.5); IMMATURE GRAN ABSOLUTE AUTO 0.02 K/mm3 (0.00-0.10); IMMATURE GRAN PERCENT AUTO 0 % (0-1); LYMPHOCYTES ABSOLUTE AUTO 1.74 K/mm3 (0.84-5.20); LYMPHOCYTES PERCENT AUTO 23 % (21-46); MONOCYTES ABSOLUTE AUTO 0.68 K/mm3 (0.16-1.47); MONOCYTES PERCENT AUTO 9 % (4-13); Mean Corpuscular HGB Conc 32.8 g/dL (31.5-36.5); Mean Corpuscular Volume 86 fL (80-100); NEUTROPHILS ABSOLUTE AUTO 4.81 K/mm3 (1.96-9.15); NEUTROPHILS PERCENT AUTO 62 % (41-73); NRBC ABSOLUTE 0.00 K/mm3 (0.00-0.02); NRBC Auto 0.0 /100 WBC (0.0-0.2); Platelet Count 242 K/mm3 (150-400); RDW Coefficient Variation 16.2 % (11.7-14.2); RDW Standard Deviation 51.0 fL (35.1-46.3)
[2025-08-17 15:08] LABS: Alanine Aminotransfer (ALT/SGP 23.0 U/L (12-78); Albumin, Blood 3.2 g/dL (3.4-5.0); Albumin/Globulin Ratio 0.9 (0.8-1.8); Anion Gap 9.0 mmol/L (3-11); Aspartate Aminotrans (AST/SGOT 13.0 U/L (12-37); Bilirubin, Total 0.3 mg/dL (0.1-1.0); Blood Urea Nitrogen 14.0 mg/dL (8-24); CO2, Blood 24.0 mmol/L (21-32); Calcium, Blood 8.6 mg/dL (8.5-10.1); Chloride, Blood 101.0 mmol/L (98-108); Creatinine, Blood 0.91 mg/dL (0.60-1.20); Globulin, Blood 3.7 g/dL (2.2-4.0); Glucose, Blood 141.0 mg/dL (70-99); Potassium, Blood 4.4 mmol/L (3.5-5.5); Sodium, Blood 130.0 mmol/L (136-145); Total Protein, Blood 6.9 g/dL (6.4-8.2)
== END ==
LOC: LAB 09:35 → LAB SHORT 09:35
PROVIDERS: Family Medicine
DX: K21.9 Gastro-esophageal reflux disease without esophagitis (principal); D64.9 Anemia, unspecified
CPT/HCPCS: 80053; 85025

== ENCOUNTER 2025-09-27 06:38 | Inpatient (IN) | payer OTHER ==
[~2025-09-27] VITALS: Ht 182.9 cm; Wt 90.7 kg
[2025-09-27 09:03] LABS: Source, Urine Foley catheter
[2025-09-27 09:07] LABS: Bilirubin, Urine Neg (Neg); Color, Urine Yellow (P-Yellow); Glucose Qualitative, Urine Neg (Neg); Ketones, Urine 1+ (Neg); Leukocyte Esterase, Urine 3+ (Neg); Protein, Urine 2+ (Neg); Specific Gravity, Urine 1.010 (1.003-1.022); Urobilinogen, Urine 2+ (Normal)
[2025-09-27 11:04] LABS: BASOPHILS ABSOLUTE AUTO 0.05 K/mm3 (0.00-0.23); BASOPHILS PERCENT AUTO 1 % (0-2); EOSINOPHILS ABSOLUTE AUTO 0.23 K/mm3 (0.00-0.68); EOSINOPHILS PERCENT AUTO 2 % (0-6); Hematocrit 36.7 % (37.0-53.0); Hemoglobin 12.3 g/dL (13.5-17.5); IMMATURE GRAN ABSOLUTE AUTO 0.05 K/mm3 (0.00-0.10); IMMATURE GRAN PERCENT AUTO 1 % (0-1); LYMPHOCYTES ABSOLUTE AUTO 1.10 K/mm3 (0.84-5.20); LYMPHOCYTES PERCENT AUTO 11 % (21-46); MONOCYTES ABSOLUTE AUTO 0.97 K/mm3 (0.16-1.47); MONOCYTES PERCENT AUTO 10 % (4-13); Mean Corpuscular HGB Conc 33.5 g/dL (31.5-36.5); Mean Corpuscular Volume 86 fL (80-100); NEUTROPHILS ABSOLUTE AUTO 7.57 K/mm3 (1.96-9.15); NEUTROPHILS PERCENT AUTO 76 % (41-73); NRBC ABSOLUTE 0.00 K/mm3 (0.00-0.02); NRBC Auto 0.0 /100 WBC (0.0-0.2); RDW Coefficient Variation 15.6 % (11.7-14.2); RDW Standard Deviation 49.0 fL (35.1-46.3)
[2025-09-27 11:10] LABS: Alanine Aminotransfer (ALT/SGP 28.0 U/L (12-78); Albumin, Blood 3.2 g/dL (3.4-5.0); Albumin/Globulin Ratio 0.8 (0.8-1.8); Anion Gap 10.0 mmol/L (3-11); Aspartate Aminotrans (AST/SGOT 19.0 U/L (12-37); Bilirubin, Total 0.6 mg/dL (0.1-1.0); Blood Urea Nitrogen 14.0 mg/dL (8-24); CO2, Blood 26.0 mmol/L (21-32); Calcium, Blood 8.7 mg/dL (8.5-10.1); Chloride, Blood 104.0 mmol/L (98-108); Creatinine, Blood 0.68 mg/dL (0.60-1.20); Globulin, Blood 4.0 g/dL (2.2-4.0); Glucose, Blood 101.0 mg/dL (70-99); Potassium, Blood 3.8 mmol/L (3.5-5.5); Sodium, Blood 136.0 mmol/L (136-145); Total Protein, Blood 7.2 g/dL (6.4-8.2)
[2025-09-27] MEDS ORDERED: Methyl Salicylate/Menth/Camph 57 GM TUBE TOP ONE (12:05)
[2025-09-27] MEDS ORDERED: Magnesium Sulf 2 GM/Water 50ML 50 ML IV ONE (12:05)
[2025-09-27 12:06] LABS: Platelet Count 197 K/mm3 (150-400)
[2025-09-27] MEDS ORDERED: FLU VACC TS2025(65UP)/MF59C/PF 45 MCG/0.5 ML SYRINGE IM SCH (13:20)
[2025-09-27] MEDS ORDERED: Morphine Sulfate 4 MG/1 ML Injection IV PRN (13:45)
[2025-09-27] MEDS ORDERED: HydrALAZINE HCl 20 MG / ML 1ML Vial IV PRN (13:50)
[2025-09-27] MEDS ORDERED: CefTRIAXone Sodium 1,000 MG in NS 100 ML IV SCH (14:00)
[2025-09-27 14:56] VITALS: BP 163/70
[2025-09-27] MEDS ORDERED: NS 250 ML IV PRN (15:25)
--- NOTE | 2025-09-27 15:34 | NUR ---
PT ARRIVED TO RM 219 FROM ER AT APPROXIMATELY 1440. PT REPORTS PAIN TO L HIP WITH MOVEMENT. PT ALERT/ORIENTED UPON ARRIVAL, HE WAS ORIENTED TO THE UNIT AND EDUCATED TO USE HIS CALL LIGHT. PT REQUESTED REPOSITIONING ONTO HIS RIGHT SIDE, PER PT HE IS UNABLE TO SLEEP ON HIS LEFT SIDE. PT HAS MULTIPLE SKIN CONCERNS. OPTIFOAM DRESSING PLACED ON COCCYX, COCCYX RED UPON ARRIVAL BUT SKIN BLANCHES. PT REPORTS HE DOES AMBULATE MINIMALLY AT HOME BUT IS UNABLE TO GET IN THE CAR AND LEAVE HIS HOME. PT LIVES WITH HIS DAUGHTER, HE STATES SHE IS HIS POA. PT RESTING IN BED AT THIS TIME.
[2025-09-27 19:26] VITALS: BP 129/62
--- NOTE | 2025-09-28 02:56 | NUR ---
CALL TO HOSPITALIST. PT EXPERIENCING SHARP SHOOTING PAINS FROM LEFT HIP DOWN HIS LEG. PT REPORTED MEDICATION GIVEN IN ER HELPED REDUCE SPASMS. PER EMAR ROBAXIN WAS ADMINISTERED. CALL PLACED TO HOSPITALIST REGARDING ABOVE. DR. YANG TO REVIEW CHART AND PLACE ORDERS.
[2025-09-28 03:11] VITALS: BP 125/55
[2025-09-28 05:46] LABS: BASOPHILS ABSOLUTE AUTO 0.03 K/mm3 (0.00-0.23); BASOPHILS PERCENT AUTO 0 % (0-2); EOSINOPHILS ABSOLUTE AUTO 0.25 K/mm3 (0.00-0.68); EOSINOPHILS PERCENT AUTO 3 % (0-6); Hematocrit 34.4 % (37.0-53.0); Hemoglobin 11.3 g/dL (13.5-17.5); IMMATURE GRAN ABSOLUTE AUTO 0.01 K/mm3 (0.00-0.10); IMMATURE GRAN PERCENT AUTO 0 % (0-1); LYMPHOCYTES ABSOLUTE AUTO 1.09 K/mm3 (0.84-5.20); LYMPHOCYTES PERCENT AUTO 15 % (21-46); MONOCYTES ABSOLUTE AUTO 0.67 K/mm3 (0.16-1.47); MONOCYTES PERCENT AUTO 9 % (4-13); Mean Corpuscular HGB Conc 32.8 g/dL (31.5-36.5); Mean Corpuscular Volume 88 fL (80-100); NEUTROPHILS ABSOLUTE AUTO 5.22 K/mm3 (1.96-9.15); NEUTROPHILS PERCENT AUTO 72 % (41-73); NRBC ABSOLUTE 0.00 K/mm3 (0.00-0.02); NRBC Auto 0.0 /100 WBC (0.0-0.2); Platelet Count 181 K/mm3 (150-400); RDW Coefficient Variation 15.6 % (11.7-14.2); RDW Standard Deviation 50.3 fL (35.1-46.3)
[2025-09-28 06:08] LABS: Alanine Aminotransfer (ALT/SGP 23.0 U/L (12-78); Albumin, Blood 2.9 g/dL (3.4-5.0); Albumin/Globulin Ratio 0.8 (0.8-1.8); Anion Gap 10.0 mmol/L (3-11); Aspartate Aminotrans (AST/SGOT 16.0 U/L (12-37); Bilirubin, Total 0.8 mg/dL (0.1-1.0); Blood Urea Nitrogen 13.0 mg/dL (8-24); CO2, Blood 25.0 mmol/L (21-32); Calcium, Blood 8.3 mg/dL (8.5-10.1); Chloride, Blood 103.0 mmol/L (98-108); Creatinine, Blood 0.68 mg/dL (0.60-1.20); Globulin, Blood 3.5 g/dL (2.2-4.0); Glucose, Blood 99.0 mg/dL (70-99); Magnesium, Blood 2.2 mg/dL (1.6-2.4); Potassium, Blood 3.9 mmol/L (3.5-5.5); Sodium, Blood 134.0 mmol/L (136-145); Total Protein, Blood 6.4 g/dL (6.4-8.2)
--- NOTE | 2025-09-28 06:16 | NUR ---
SHIFT SUMMARY NOC. PT ADMIT FOR NON SURGICAL LEFT ACETABULUM FX. PT A/O X4, AND MAKES NEEDS KNOWN. PT MEDICATED FOR PAIN WITH TYLENOL. NEW ORDERS RECEIVED THIS SHIFT FOR MUSCLE RELAXER D/T SPASMS, WHICH HELPED SOME PER PT REPORT. PT REPOSITIONED FREQUENTLY, HEEL PROTECTORS IN PLACE. ALTAMIRANO BELOW BLADDER LEVEL, DRAINING TO GRAVITY. PER DAY SHIFT RN REPORT, DAUGHTER STATED PT IS SENSITIVE TO PAIN MEDICATIONS. CALL LIGHT IN REACH.
[2025-09-28 07:06] VITALS: BP 123/68
[2025-09-28] MEDS ORDERED: Enoxaparin 40 MG/0.4 ML SYR SC SCH (09:00)
[2025-09-28] MEDS ORDERED: Cholecalciferol 1000 Unit Tablet (=25MCG) PO SCH (09:00)
[2025-09-28] MEDS ORDERED: OxyCODONE 5 mg/Acetamin 325 mg TABLET PO PRN (10:15)
[2025-09-28 15:17] VITALS: BP 157/73
--- NOTE | 2025-09-28 17:52 | NUR ---
SHIFT SUMMARY PATIENT IS AOX3-4 POOR HISTORIAN, ABLE TO MAKE NEEDS KNOWN.NON-SURGICAL HIP FX.WORKED WITH PT AND OT TODAY RECOMMENDED FOR SNF. WBAT. EOB TO STAND 2 PERSON ASSIST. TOLERATES PO INTAKE, HAS A CHRONIC ALTAMIRANO THAT WAS REPLACED IN ED. VSS, FAMILY IN TO VISIT TODAY BROUGHT ADVANCED DIRECTIVE COPY, PLACED IN CHART. REPORT TO STEAM POWER PLANT OPERATOR RN.
[2025-09-28 18:08] VITALS: BP 132/71
[2025-09-28 20:46] VITALS: BP 168/75
[2025-09-29 03:05] VITALS: BP 155/76
--- NOTE | 2025-09-29 05:05 | NUR ---
SHIFT SUMMARY PT HAS HAD INTERMITTENT PAIN AND MUSCLE SPASMS IN HIS HIP, PAIN MANAGED PER EMAR WHICH HAS BEEN EFFECTIVE FOR PAIN CONTROL. VITALS ARE STABLE. PT ABLE TO MAKE NEEDS KNOWN. RESTED IN BED T/O THE NIGHT. PLAN OF CARE REMAINS UNCHANGED. BED IN LOWEST POSITION, CALL LIGHT WITHIN REACH.
[2025-09-29 07:07] VITALS: BP 165/89
[2025-09-29 07:08] VITALS: BP 162/71
[2025-09-29 13:55] VITALS: BP 153/74
--- NOTE | 2025-09-29 15:01 | NUR ---
PT DC'D @1450 WITH WHEELCHAIR BLOCKER AUTOMATIC. PT KARIN ALL BELONGINGS. IV PULLED. NO ACUTE CHANGES T/O SHIFT. VSS. AXO4. L HIP PAIN CONTROLLED WITH PO PAIN MEDICATIONS. REPORT CALLED TO SNF BY THANH LOUIE. DC PACKET COMPLETED BY CARE MANAGEMENT.
== END 2025-09-29 14:56 | DRG 536 ==
LOC: ER 06:38 → SURS 12:45
PROVIDERS: Student in an Organized Health Care Education/Training Program; ADMIT Internal Medicine
DX: S32.435A Nondisplaced fracture of anterior column [iliopubic] of left acetabulum, initial encounter for closed fracture (principal); N39.0 Urinary tract infection, site not specified; M48.56XA Collapsed vertebra, not elsewhere classified, lumbar region, initial encounter for fracture; E87.1 Hypo-osmolality and hyponatremia; W18.30XA Fall on same level, unspecified, initial encounter; K21.9 Gastro-esophageal reflux disease without esophagitis; I70.0 Atherosclerosis of aorta; M81.0 Age-related osteoporosis without current pathological fracture; I10 Essential (primary) hypertension; R33.9 Retention of urine, unspecified; E78.5 Hyperlipidemia, unspecified; I87.2 Venous insufficiency (chronic) (peripheral); D64.9 Anemia, unspecified; M51.369 Other intervertebral disc degeneration, lumbar region without mention of lumbar back pain or lower extremity pain; Z85.51 Personal history of malignant neoplasm of bladder; Z85.038 Personal history of other malignant neoplasm of large intestine; Z86.718 Personal history of other venous thrombosis and embolism; Z79.01 Long term (current) use of anticoagulants; Z92.3 Personal history of irradiation; Z87.891 Personal history of nicotine dependence; Z79.899 Other long term (current) drug therapy
CPT/HCPCS: 36415; 51702; 72100; 72192; 73502; 80053; 81001; 83735; 85025; 85049; 87077; 87086; 87186; 96365-59; 97162; 97165; 97530; 97535; 99285-25; A9270; G0378; J0696; J1650; J3475; J7050